=== PATIENT | female | born 1985 | race American Indian/Alaskan Native ===

== ENCOUNTER 2017-07-25 17:19 | Outpatient (CLI) | payer OTHER ==
--- NOTE | 2017-07-26 08:11 | XRay Report ---
XRAY LUMBAR SPINE THREE VIEWS: 07/25/17 17:19:00 CLINICAL: Low back pain. FINDINGS: Normal vertebral body height, alignment and disk spaces. The pedicles are intact. No fracture. Normal soft tissues. IMPRESSION: Normal.
== END 2017-07-25 17:20 | disposition home or self-care (01) ==
LOC: XRAY 17:19
PROVIDERS: ATTEND Internal Medicine
DX: Z02.71 Encounter for disability determination (principal); M54.5 Low back pain
CPT/HCPCS: 72100